=== PATIENT | female | born 1970 | race American Indian/Alaskan Native ===

== ENCOUNTER 2017-03-24 20:30 | Emergency (ER) | payer BC, OTHER ==
[2017-03-24 20:30] VITALS: BMI 26.4
[2017-03-24 20:40] VITALS: BP 141/96; TEMP 98.7; O2SAT 99
--- NOTE | 2017-03-24 21:50 | ED PDOC ---
Arrival/HPI - General Chief Complaint: Headache Time Seen by Provider: 03/24/17 20:44 Historian: Patient - History of Present Illness Narrative History of Present Illness (Text): 03/24/17 20:50 22 year old patient, whose past medical history includes hypertension and migraine headaches, presents to the emergency department complaining of head discomfort to the left frontal temporal area for the past 3 days. Patient states she took Advil with minimal relief. She reports she was concerned of the duration of the headache. Patient denies any fever, chills, chest pain, shortness of breath, nausea, vomiting, diarrhea, urinary symptoms, back pain, neck pain, dizziness, or any other complaints. PMD: Dr. Guo Time/Duration: Other (three days) Symptom Onset: Gradual Symptom Course: Unchanged Activities at Onset: Light Context: Home Past Medical History - Provider Review Nursing Documentation Reviewed: Yes - Cardiac Hx Cardiac Disorders: Yes Hx Hypertension: Yes - Endocrine/Metabolic Hx Endocrine Disorders: Yes Hx Hypothyroidism: Yes - Psychiatric Hx Substance Use: No - Surgical History Hx Tubal Ligation: Yes - Suicidal Assessment Feels Threatened In Home Enviroment: No Family/Social History - Physician Review Nursing Documentation Reviewed: Yes Family/Social History: No Known Family HX Smoking Status: Never Smoked Hx Alcohol Use: Yes Frequency of alcohol use: Socially Hx Substance Use: No Allergies/Home Meds Allergies/Adverse Reactions: Allergies mushroom Allergy (Verified 03/24/17 20:40) SWELLING Home Medications: Home Meds Medication Instructions Recorded Confirmed Levothyroxine [Synthroid] 25 mcg PO DAILY 03/24/17 03/24/17 amLODIPine [Norvasc] 10 mg PO DAILY 03/24/17 03/24/17 Review of Systems - Physician Review All systems were reviewed & negative as marked: Yes - Review of Systems Constitutional: absent: Fevers, Other (Chills) Respiratory: absent: SOB Cardiovascular: absent: Chest Pain Gastrointestinal: absent: Diarrhea, Nausea, Vomiting Genitourinary Female: absent: Dysuria, Frequency, Hematuria Musculoskeletal: absent: Back Pain, Neck Pain Neurological: Headache. absent: Dizziness Physical Exam Vital Signs Reviewed: Yes Vital Signs Temp Pulse Resp BP Pulse Ox 03/24/17 22:56 18 99 03/24/17 22:55 98.7 F 79 17 99 03/24/17 20:40 98.7 F 78 18 141/96 H 99 Temperature: Afebrile Blood Pressure: Normal Pulse: Regular Respiratory Rate: Normal Appearance: Positive for: Well-Appearing, Non-Toxic, Comfortable Pain Distress: None Mental Status: Positive for: Alert and Oriented X 3 - Systems Exam Head: Present: Atraumatic, Normocephalic Pupils: Present: PERRL Extroacular Muscles: Present: EOMI Conjunctiva: Present: Normal Mouth: Present: Moist Mucous Membranes Neck: Present: Normal Range of Motion. No: Meningeal Signs Respiratory/Chest: Present: Clear to Auscultation, Good Air Exchange. No: Respiratory Distress, Accessory Muscle Use Cardiovascular: Present: Regular Rate and Rhythm, Normal S1, S2. No: Murmurs Abdomen: Present: Normal Bowel Sounds. No: Tenderness, Distention, Peritoneal Signs Back: Present: Normal Inspection Upper Extremity: Present: Normal Inspection. No: Cyanosis, Edema Lower Extremity: Present: Normal Inspection. No: Edema Neurological: Present: GCS=15, CN II-XII Intact, Speech Normal, Motor Func Grossly Intact, Normal Sensory Function, Normal Cerebellar Funct Skin: Present: Warm, Dry, Normal Color. No: Rashes Psychiatric: Present: Alert, Oriented x 3, Normal Insight, Normal Concentration Medical Decision Making ED Course and Treatment: 03/24/17 20:50 Impression: 46 year old female presents complaining of head discomfort of the left frontal temporal area for the past 3 days. Plan: -- Head CT -- Reassess and disposition Progress Notes: EXAM: CT Head Without Intravenous Contrast Dictated and Authenticated by: Ambrose Rutherford MD 03/24/2017 10:12 PM IMPRESSION: 1. Nonspecific white matter changes. Acute infarction may be CT occult within first 24 hours. If a focal deficit persists, consider followup CT or MRI for further evaluation. - RAD Interpretation Radiology Orders: 03/24/17 20:57 HEAD W/O CONTRAST [CT] Stat - Medication Orders Current Medication Orders: Discontinued Medications Ibuprofen (Motrin Tab) 600 mg PO STAT STA Stop: 03/24/17 22:43 Last Admin: 03/24/17 22:55 Dose: 600 mg MAR Pain/Vitals Document 03/24/17 22:55 [email or web address] (Rec: 03/24/17 22:55 [email or web address] [facility] [place]-[id number]) Pain Reassessment Is This A Pain ReAssessment? No Sleep Is patient sleeping during reassessment? No Presence of Pain Presence of Pain Yes Location Pain Location Body Site Hip Description Constant Intensity 5 Scale Used Numeric Pain Behavior Facial Grimacing Aggravating Factors Changing Position Alleviating Factors Medication Tramadol HCl (Ultram) 50 mg PO STAT STA Stop: 03/24/17 22:43 Last Admin: 03/24/17 22:49 Dose: Not Given Non-Admin Reason: Patient Refused - Scribe Statement The provider has reviewed the documentation as recorded by the Taylor Swift Provider Scribe Attestation: All medical record entries made by the Scribe were at my direction and personally dictated by me. I have reviewed the chart and agree that the record accurately reflects my personal performance of the history, physical exam, medical decision making, and the department course for this patient. I have also personally directed, reviewed, and agree with the discharge instructions and disposition. Disposition/Present on Arrival - Present on Arrival Any Indicators Present on Arrival: No History of DVT/PE: No History of Uncontrolled Diabetes: No Urinary Catheter: No History of Decub. Ulcer: No History Surgical Site Infection Following: None - Disposition Have Diagnosis and Disposition been Completed?: Yes Diagnosis: Headache Disposition: HOME/ ROUTINE Disposition Time: 22:41 Patient Plan: Discharge Condition: STABLE Discharge Instructions (ExitCare): Migraine Headache (ED) Additional Instructions: rest/no strenuous physical activity/meds as prescribed/follow up with your doctor this week Prescriptions: Acetaminophen/Butalbital/Caf [Fioricet] 1 tab PO Q6 PRN #16 tab PRN Reason: Headache Referrals: Radha Guo MD [Primary Care Provider] - Follow up with primary Forms: [employer] (Scottish), WORK NOTE
--- NOTE | 2017-03-24 22:12 | CT ---
EXAM: CT Head Without Intravenous Contrast CLINICAL HISTORY: 46 years old, female; Pain; Headache; Tension TECHNIQUE: Axial computed tomography images of the head/brain without intravenous contrast. All CT scans at this facility use one or more dose reduction techniques, viz.: automated exposure control; ma/kV adjustment per patient size (including targeted exams where dose is matched to indication; i.e. head); or iterative reconstruction technique. COMPARISON: No relevant prior studies available. FINDINGS: Brain: No intracranial hemorrhage. Few scattered subtle foci of decreased attenuation within periventricular/subcortical white matter. No definite edema. Ventricles: No hydrocephalus. Bones/joints: No acute fracture. Soft tissues: Unremarkable. Sinuses: No acute sinusitis. Mastoid air cells: No mastoid effusion. Orbits: Unremarkable as visualized. IMPRESSION: 1. Nonspecific white matter changes. Acute infarction may be CT occult within first 24 hours. If a focal deficit persists, consider followup CT or MRI for further evaluation.
[2017-03-24 22:56] VITALS: PULSE 79; RESP 18
== END 2017-03-24 22:56 | disposition home or self-care (01) ==
LOC: ED 20:30
DX: R51 Headache (principal); I10 Essential (primary) hypertension

== ENCOUNTER 2017-12-30 22:23 | Emergency (ER) | payer BC ==
[2017-12-30 22:24] VITALS: BMI 30.9
[2017-12-30] MEDS ORDERED: Sodium Chloride 0.9% 1,000 ML IV STA (22:36)
--- NOTE | 2017-12-30 22:47 | ED PDOC ---
Arrival/HPI - General Chief Complaint: GI Problem Time Seen by Provider: 12/30/17 22:25 Historian: Patient - History of Present Illness Narrative History of Present Illness (Text): 12/30/17 22:43 Marilee Bahena is a 47 year old female who presents to the Emergency department complaining of nausea, vomiting, and diarrhea. Patient states symptoms began after eating left-over barbeque chicken and coleslaw 2 days prior. Patient notes associated decreased PO intake secondary to vomiting. Patient denies any fever, chills, chest pain, shortness of breath, urinary symptoms, back pain, neck pain, headache, dizziness, or any other complaints. Symptom Onset: Gradual Symptom Course: Unchanged Activities at Onset: Light Context: Home Past Medical History - Provider Review Nursing Documentation Reviewed: Yes - Cardiac Hx Cardiac Disorders: Yes Hx Hypertension: Yes - Endocrine/Metabolic Hx Endocrine Disorders: Yes Hx Hypothyroidism: Yes - Psychiatric Hx Substance Use: No - Surgical History Hx Tubal Ligation: Yes - Suicidal Assessment Feels Threatened In Home Enviroment: No Family/Social History - Physician Review Nursing Documentation Reviewed: Yes Family/Social History: Unknown Family HX Smoking Status: Never Smoked Hx Alcohol Use: Yes Hx Substance Use: No Allergies/Home Meds Allergies/Adverse Reactions: Allergies mushroom Allergy (Verified 03/24/17 20:40) SWELLING Home Medications: Home Meds Medication Instructions Recorded Confirmed Levothyroxine [Synthroid] 25 mcg PO DAILY 03/24/17 12/30/17 amLODIPine [Norvasc] 10 mg PO DAILY 03/24/17 12/30/17 Review of Systems - Physician Review All systems were reviewed & negative as marked: Yes - Review of Systems Constitutional: Normal. absent: Fevers Eyes: Normal ENT: Normal Respiratory: Normal. absent: SOB, Cough Cardiovascular: Normal. absent: Chest Pain Gastrointestinal: Diarrhea, Nausea, Vomiting Genitourinary Female: Normal. absent: Dysuria, Frequency, Hematuria, Urine Output Changes Musculoskeletal: Normal. absent: Back Pain, Neck Pain Skin: Normal. absent: Rash Neurological: Normal. absent: Headache, Dizziness Endocrine: Normal Hemo/Lymphatic: Normal Psychiatric: Normal Physical Exam Vital Signs Reviewed: Yes Vital Signs Temp Pulse Resp BP Pulse Ox 12/31/17 01:35 98.0 F 72 17 144/89 98 12/30/17 22:27 97.8 F 77 16 141/74 99 Temperature: Afebrile Blood Pressure: Normal Pulse: Regular Respiratory Rate: Normal Appearance: Positive for: Well-Appearing, Non-Toxic, Comfortable Pain Distress: None Mental Status: Positive for: Alert and Oriented X 3 - Systems Exam Head: Present: Atraumatic, Normocephalic Pupils: Present: PERRL Extroacular Muscles: Present: EOMI Conjunctiva: Present: Normal Mouth: Present: Moist Mucous Membranes Neck: Present: Normal Range of Motion Respiratory/Chest: Present: Clear to Auscultation, Good Air Exchange. No: Respiratory Distress, Accessory Muscle Use Cardiovascular: Present: Regular Rate and Rhythm, Normal S1, S2. No: Murmurs Abdomen: Present: Tenderness (Mild tenderness to RLQ). No: Distention, Peritoneal Signs Back: Present: Normal Inspection Upper Extremity: Present: Normal Inspection. No: Cyanosis, Edema Lower Extremity: Present: Normal Inspection. No: Edema Neurological: Present: GCS=15, CN II-XII Intact, Speech Normal Skin: Present: Warm, Dry, Normal Color. No: Rashes Psychiatric: Present: Alert, Oriented x 3, Normal Insight, Normal Concentration Medical Decision Making ED Course and Treatment: 12/30/17 22:43 Impression: 47 year old female complaining of nausea, vomiting, and diarrhea for 2 days Plan: -- Labs, lipase -- Urinalysis -- IV fluids -- Zofran -- Reassess and disposition Prior Visits: Notes and results from previous visits were reviewed. Progress Notes: Re-evaluation Time: 01:25 Reassessment Condition: Re-examined, Improved - Lab Interpretations Lab Results: 12/30/17 22:58 12/30/17 22:58 Lab Results 12/30/17 22:59: Urine Color Yellow, Urine Appearance Clear, Urine pH 6.0, Ur Specific [place] >= 1.030, Urine Protein Negative, Urine Glucose (UA) Negative, Urine Ketones Negative, Urine Blood Negative, Urine Nitrate Negative, Urine Bilirubin Negative, Urine Urobilinogen 1.0 H, Ur Leukocyte Esterase Negative 12/30/17 22:58: Sodium 141, Potassium 3.8, Chloride 103, Carbon Dioxide 26, Anion Gap 16, BUN 13, Creatinine 0.7, Est GFR ( Amer) > 60, Est GFR (Non- Af Amer) > 60, Random Glucose 101, Calcium 8.9, Magnesium 2.2, Total Bilirubin 0.3, AST 23, ALT 32, Alkaline Phosphatase 98, Total Protein 8.0, Albumin 4.2, Globulin 3.7, Albumin/Globulin Ratio 1.1, Lipase 38 12/30/17 22:58: PT 11.6, INR 1.02, APTT 32.0 12/30/17 22:58: WBC 6.6, RBC 4.56, Hgb 11.5 L, Hct 36.0, MCV 78.9 L, MCH 25.2, MCHC 31.9, RDW 14.6 H, Plt Count 342, MPV 9.8, Gran % 44.1 L, Lymph % (Auto) 38.4 H, [place] % (Auto) 15.1 H, Eos % (Auto) 2.1, Baso % (Auto) 0.3, Gran # 2.91, Lymph # (Auto) 2.5, [place] # (Auto) 1.0 H, Eos # (Auto) 0.1, Baso # (Auto) 0.02 - Medication Orders Current Medication Orders: Discontinued Medications Sodium Chloride (Sodium Chloride 0.9%) 1,000 mls @ 100 mls/hr IV .Q10H STA Stop: 12/31/17 08:35 Last Admin: 12/30/17 23:04 Dose: 100 mls/hr eMAR Start Stop Document 12/30/17 23:04 IT (Rec: 12/30/17 23:04 IT [id number]) Intravenous Solution Start Date 12/30/17 Start Time 23:04 Ondansetron HCl (Zofran Inj) 4 mg IVP STAT STA Stop: 12/30/17 22:37 Last Admin: 12/30/17 23:04 Dose: 4 mg IVP Administration Document 12/30/17 23:04 IT (Rec: 12/30/17 23:04 IT [id number]) Charges for Administration # of IVP Administrations 1 Ondansetron HCl (Zofran Inj) 4 mg IVP STAT STA Stop: 12/31/17 00:29 Last Admin: 12/31/17 00:48 Dose: 4 mg IVP Administration Document 12/31/17 00:48 IT (Rec: 12/31/17 00:48 IT [id number]) Charges for Administration # of IVP Administrations 1 - Scribe Statement The provider has reviewed the documentation as recorded by the Taylor Massey Provider Scribe Attestation: All medical record entries made by the Scribe were at my direction and personally dictated by me. I have reviewed the chart and agree that the record accurately reflects my personal performance of the history, physical exam, medical decision making, and the department course for this patient. I have also personally directed, reviewed, and agree with the discharge instructions and disposition. Disposition/Present on Arrival - Present on Arrival Any Indicators Present on Arrival: No History of DVT/PE: No History of Uncontrolled Diabetes: No Urinary Catheter: No History of Decub. Ulcer: No History Surgical Site Infection Following: None - Disposition Have Diagnosis and Disposition been Completed?: Yes Diagnosis: Gastroenteritis Disposition: HOME/ ROUTINE Disposition Time: 01:35 Condition: GOOD Discharge Instructions (ExitCare): Gastroenteritis (ED) Prescriptions: Ondansetron [Zofran Odt] 8 mg PO TID PRN #10 odt PRN Reason: Nausea/Vomiting Forms: [facility] [employer] ([place])
[2017-12-30 23:20] LABS: ALB/GLOB RATIO 1.1 (1.1-1.8)
[2017-12-30 23:34] LABS: ALBUMIN 4.2 g/dL (3.0-4.8); ALT/SGPT 32 U/L (7-56); AST/SGOT 23 U/L (14-36); BLOOD UREA NITROGEN 13 mg/dL (7-21); CALCIUM 8.9 mg/dL (8.4-10.5); GFR AFRICAN-AMERICAN > 60; GFR NON-AFRICAN AMERICAN > 60; LIPASE 38 U/L (23-300)
[2017-12-30 23:55] LABS: URINE BILIRUBIN NEGATIVE (NEGATIVE); URINE BLOOD NEGATIVE (NEGATIVE); URINE GLUCOSE (UA) NEGATIVE (NEGATIVE); URINE LEUKOCYTE ESTERASE NEGATIVE Leu/uL (NEGATIVE)
[2017-12-30 23:56] LABS: BASO # 0.02 K/mm3 (0.0-2.0); BASO % 0.3 % (0.0-3.0); EOS # 0.1 (0.0-0.7); EOS % 2.1 % (1.5-5.0); GRAN # 2.91 (1.4-6.5); GRAN % 44.1 % (50.0-68.0); HEMOGLOBIN 11.5 g/dL (12.0-16.0); LYMPH # 2.5 (1.2-3.4); LYMPH % 38.4 % (22.0-35.0); MEAN CELL VOLUME 78.9 fl (80.0-105.0); MEAN CORPUSCULAR HEMOGLOBIN 25.2 pg (25.0-35.0); MEAN CORPUSCULAR HGB CONC 31.9 g/dl (31.0-37.0); MEAN PLATELET VOLUME 9.8 fl (7.0-11.0); MONO % 15.1 % (1.0-6.0); RBC 4.56 10^6/uL (3.5-6.1); RED CELL DISTRIBUTION WIDTH 14.6 % (11.5-14.5); WHITE BLOOD COUNT 6.6 10^3/ul (4.5-11.0)
[2017-12-30 23:57] LABS: URINE APPEARANCE CLEAR (CLEAR); URINE COLOR YELLOW (YELLOW); URINE PROTEIN NEGATIVE mg/dL (<30 mg/dL)
[2017-12-31 00:01] LABS: INR 1.02 (0.93-1.08); PROTHROMBIN TIME 11.6 SECONDS (9.4-12.5)
[2017-12-31 01:36] VITALS: BP 144/89; PULSE 72; RESP 17; TEMP 98; O2SAT 98
== END 2017-12-31 01:36 | disposition home or self-care (01) ==
LOC: ED 22:23
DX: K52.9 Noninfective gastroenteritis and colitis, unspecified (principal); I10 Essential (primary) hypertension; E03.9 Hypothyroidism, unspecified
CPT/HCPCS: 80053; 81003; 83690; 83735; 85025; 85610; 85730; 96374; 99284; J2405; J7030